=== PATIENT | male | born 1985 | race African-American/Black ===

== ENCOUNTER 2018-06-23 12:26 | Emergency (ER) | payer SELFPAY ==
[~2018-06-23] VITALS: Ht 182.9 cm; Wt 87.0 kg
[2018-06-23] MEDS ORDERED: KETOROLAC 60MG/2ML VIAL IM STA (13:26)
[2018-06-23 18:35] VITALS: BP 110/62
== END 2018-06-23 18:42 | disposition home or self-care (01) ==
LOC: ER 12:26 → EDBEDREQ 16:53 → EDBEDREQTM 17:45 → EDBEDREQ 17:45 → ER 18:42 → ENRESERV 19:45 → CANRESERV 19:45 → CANBEDREQ 22:00
DX: M54.5 Low back pain (principal); S50.812A Abrasion of left forearm, initial encounter; M25.562 Pain in left knee; M25.572 Pain in left ankle and joints of left foot; R51 Headache; J45.909 Unspecified asthma, uncomplicated; V23.4XXA Motorcycle driver injured in collision with car, pick-up truck or van in traffic accident, initial encounter; Y93.89 Activity, other specified; Y92.89 Other specified places as the place of occurrence of the external cause; Y99.8 Other external cause status
CPT/HCPCS: 70450; 72131; 73130; 73560; 73590; 73600; 96372; 99284; J1885

== ENCOUNTER 2018-10-19 12:42 | Emergency (ER) | payer SELFPAY ==
[~2018-10-19] VITALS: Ht 177.8 cm; Wt 85.0 kg
[2018-10-19 12:43] VITALS: BP 124/71
[2018-10-19 14:10] LABS: CLARITY URINE CLOUDY (CLEAR); COLOR URINE YELLOW (YELLOW); KETONES URINE NEGATIVE (NEGATIVE); LEUKOCYTE ESTERASE URINE 3+ (NEGATIVE); NITRITE URINE NEGATIVE (NEGATIVE); OCCULT BLOOD URINE TRACE (NEGATIVE); PH URINE 6.5 (4.5-8.0); PROTEIN URINE NEGATIVE (NEGATIVE); SPECIFIC GRAVITY URINE 1.018 (1.005-1.030); UROBILINOGEN URINE 0.2 E.U./dL (0.2-1.0)
[2018-10-19] MEDS ORDERED: VISCOUS LIDOCAINE 2% 15 ML UDC PO ONE (15:00)
[2018-10-19] MEDS ORDERED: LIDOCAINE HCL 1% 20ML VIAL (Pyxis) INJ INFIL ONE (15:00)
[2018-10-19] MEDS ORDERED: AZITHROMYCIN 500 MG TABLET PO ONE (15:00)
[2018-10-19] MEDS ORDERED: CEFTRIAXONE SODIUM 250 MG/VIAL IM ONE (15:00)
[2018-10-23 04:20] LABS: CHLAMYDIA TRACHOMATIS NAA Negative (Negative); NEISSERIA GONORRHOEAE NAA Positive (Negative)
== END 2018-10-19 15:48 | disposition home or self-care (01) ==
LOC: ER 12:42
DX: A64 Unspecified sexually transmitted disease (principal); R36.9 Urethral discharge, unspecified; F12.10 Cannabis abuse, uncomplicated; Z91.018 Allergy to other foods
CPT/HCPCS: 81003; 87077; 87086; 87491; 87591; 96372; 99283; J0696; J3490

== ENCOUNTER 2019-04-25 02:29 | Emergency (ER) | payer SELFPAY ==
[~2019-04-25] VITALS: Ht 177.8 cm; Wt 75.0 kg
[2019-04-25] MEDS ORDERED: CEFTRIAXONE SODIUM 250 MG/VIAL IM ONE (03:30)
[2019-04-25] MEDS ORDERED: AZITHROMYCIN 500 MG TABLET PO ONE (03:30)
[2019-04-25] MEDS ORDERED: LIDOCAINE HCL 1% 20ML VIAL (Pyxis) INJ INFIL ONE (03:30)
[2019-04-25 04:40] LABS: CLARITY URINE CLEAR (CLEAR); COLOR URINE YELLOW (YELLOW); KETONES URINE NEGATIVE (NEGATIVE); LEUKOCYTE ESTERASE URINE 1+ (NEGATIVE); NITRITE URINE NEGATIVE (NEGATIVE); OCCULT BLOOD URINE NEGATIVE (NEGATIVE); PH URINE 6.5 (4.5-8.0); PROTEIN URINE NEGATIVE (NEGATIVE); SPECIFIC GRAVITY URINE 1.027 (1.005-1.030); UROBILINOGEN URINE 0.2 E.U./dL (0.2-1.0)
[2019-04-25 05:24] VITALS: BP 122/69
[2019-04-30 04:08] LABS: CHLAMYDIA TRACHOMATIS NAA Positive (Negative); NEISSERIA GONORRHOEAE NAA Negative (Negative)
== END 2019-04-25 05:25 | disposition home or self-care (01) ==
LOC: ER 02:29
DX: N34.2 Other urethritis (principal); F12.10 Cannabis abuse, uncomplicated; J45.909 Unspecified asthma, uncomplicated; Z91.018 Allergy to other foods
CPT/HCPCS: 81003; 87086; 87491; 87591; 96372; 99283; J0696; J3490